=== PATIENT | female | born 1985 | race Caucasian/White ===

== ENCOUNTER 2023-09-11 09:10 | Emergency (ER) | payer MEDICAID, SELFPAY ==
[2023-09-11 09:15] VITALS: BP 139/92; PULSE 104; RESP 18; TEMP 36.6; O2SAT 98
[2023-09-11] MEDS: Ondansetron O.D.T. 4 MG TABEF PO (09:34)
--- NOTE | 2023-09-11 09:48 | ED.GENADUL_ITS ---
Discharge Plan Disposition Patient Disposition: Home Discharge Details Clinical Impression: Diarrhea, Nausea in adult patient Primary Care Provider: None,None ED Provider: Kaleb Suresh Home Meds and New Rx's Prescriptions: New ondansetron 4 mg tablet,disintegrating 4 mg PO Q6H PRN (Reason: nausea and vomiting) Qty: 30 1RF Discharge Instructions Instructions: Acute Nausea and Vomiting (ED), Acute Diarrhea (ED) Additional Instructions: take zofran as needed for nausea return if you are unable to keep anything down or feel like you have a decreased urine output HPI General Date/Time Provider Initiated Documentation: 09/11/23 09:28 . Limitations to Documentation: no limitations . Information obtained by: patient . HPI Narrative: 38y F without PMH presents for evaluation of diarrhea. reports that this has been ongoing for several hours. has some nausea but has not had any vomiting. she denies fever. she states that she's out of zofran at home. she doesn't want any labs or other work up. Related Data Home Medications Medication Instructions Recorded Confirmed ondansetron 4 mg disintegrating 4 mg PO Q6H PRN nausea and 09/11/23 tablet vomiting #30 tabs Previous Rx's Medication Instructions Recorded ondansetron 4 mg disintegrating 4 mg PO Q6H PRN nausea and 09/11/23 tablet vomiting #30 tabs Allergies Allergy/AdvReac Type Severity Reaction Status Date / Time No Known Allergies Allergy Unverified 09/11/23 09:19 General Stated Complaint: Nausea/Vomit/Diar RODRIGO: 4 Exam Narrative Exam Narrative: Review of Systems: All systems reviewed & are unremarkable except as noted in HPI and below Well-developed, no acute distress NCAT PERRL, normal conjunctiva RRR Unlabored respiratory effort Nondistended abdomen Extremities w/o deformity, no cyanosis, no edema No rashes or lesions. no focal neurologic deficits Appropriate mood and affect Course Vital Signs Vital signs: Vital Signs Temperature 36.6 C 09/11/23 09:15 Pulse 104 H 09/11/23 09:15 Respiratory Rate 18 09/11/23 09:15 Blood Pressure 139/92 H 09/11/23 09:15 Pulse Oximetry 98 09/11/23 09:15 Temperature 36.6 C 09/11/23 09:15 Temperature Source Temporal Artery Scan 09/11/23 09:15 Pulse 104 H 09/11/23 09:15 Respiratory Rate 18 09/11/23 09:15 Respiratory Effort Normal 09/11/23 09:18 Blood Pressure 139/92 H 09/11/23 09:15 Blood Pressure Position Sitting 09/11/23 09:15 Pulse Oximetry 98 09/11/23 09:15 Oxygen Delivery Method Room Air 09/11/23 09:15 Oxygen Flow Rate 0 09/11/23 09:15 Pain Level 0 09/11/23 09:15 Medical Decision Making Evaluation of diarrhea and nausea. Patient is well-appearing, nontoxic. Has no clinical signs of dehydration. Initial differential includes viral GI illness, dehydration, electrolyte derangement, intra-abdominal process less likely. Also considered , but today patient declines any additional lab work or testing. An oral dose of Zofran was provided and the patient will be sent home with a prescription to the pharmacy. Return precautions advised. Discharged in good condition. Medical Records Medical records reviewed: Yes I reviewed the patient's medical records. Quality:SDOH Health Related Social Needs: No Data to Display PFSH All Active Problems Nausea in adult patient (Acute) Diarrhea (Acute) Social History Smoking/Tobacco Use Status: Current-Occasional Smoking risk assessment performed?: Yes Alcohol Intake: current Drug use: Never Substance use type: does not use PAWSS Have you Been Recently Intoxicated or Drunk Within the Last 30 days?: No Have you Ever Experienced Previous Episodes of Alcohol Withdrawal?: No Have you ever Experienced Withdrawal Seizures?: No Have you ever Experienced Delirium Tremens(DT)s?: No Have you ever undergone Alcohol Rehabilitation Treatment (i.e, inpt ot outpatient treatment programs)?: No Have you ever Experienced Blackouts?: No Have you ever Combined Alcohol with other Downers within the last 90 days?: No Have you ever Combined Alcohol with any other Substance of Abuse during the last 90 days?: No Result: 0
== END 2023-09-11 09:54 | disposition home or self-care (01) ==
LOC: ER 10:08
PROVIDERS: Emergency Provider Emergency Medicine
DX: R11.0 Nausea (principal); R19.7 Diarrhea, unspecified
CPT/HCPCS: 99283